=== PATIENT | female | born 1985 | race Caucasian/White ===

== ENCOUNTER 2016-12-04 09:21 | Day surgery (SDC) | payer BC ==
[~2016-12-04] VITALS: Ht 162.6 cm; Wt 96.6 kg
--- NOTE | ~2016-12-04 | OR ---
PATIENT'S NAME: EDA PAL [facility] AGE: 31 [address] ROOM: [address] [id number] LOCATION: [facility] ADMIT DATE: 12/04/2016 OR/Procedure Report DISCHARGE DATE: 12/05/2016 FAMILY PHYSICIAN: PHYSICIAN, NO ATTENDING PHYSICIAN: Noreen Ziegler SURGEON: Noreen Ziegler MD ACQUISITION COST ESTIMATOR: DATE OF PROCEDURE: 12/04/2016 PREOPERATIVE DIAGNOSIS: Left C6-C7 disk herniation. POSTOPERATIVE DIAGNOSIS: Left C6-C7 disk herniation. OPERATIONS PROPOSED AND PERFORMED: 1. Anterior cervical microdiskectomy at C6-C7. 2. Anterior cervical fusion at C6-C7. 3. Plating using the inion absorbable plate. 4. Allograft using the [employer] [place] cervical allograft. 5. Microscope. 6. Fluoroscopy with interpretation. DESCRIPTION OF PROCEDURE: Under general anesthesia, the patient was positioned supine. The neck was extended. The neck and the upper chest were prepped and draped in the usual fashion. A curvilinear incision was then carried out, extending from the anterior border of the sternomastoid muscle to the midline. The platysma was incised along this length, and we continued our dissection in the plane between the sternomastoid muscle and the strap muscles, working medial to the sternomastoid muscle and medial to the carotid artery. This got us to the prevertebral fascia. In order to get there, we had to retract the strap muscles as well as the esophagus and trachea away from the midline. Next, the prevertebral fascia was cauterized and incised. Two spinal needles were placed in adjacent disk spaces, and the lateral C-spine x-ray obtained showed where the C6-C7 and C7-T1 took our the needle from both levels, and made an incision into the C6-C7 disk space to rosie it. Next, the longus colli muscles were from their attachment to the vertebral bodies, and the [employer] self-retaining retractors were then used for retraction, making sure that the transverse blades were under the longus colli muscles. Next, the incision into the C6-C7 disk space was extended to cut as much disk as we could grossly. We then went ahead and screwed the distractor rods into the C6 and C7 vertebral bodies, and distracted the disk space. Next, the microscope was brought in. With the aid of the microscope, we completely removed the disk. We also removed the posterior longitudinal ligament. We got into some epidural vessel bleeding, especially on the left side. We were, however, able to control this PATIENT'S NAME: EDA PAL [facility] AGE: 31 Y [address] ROOM: [place] [id number] LOCATION: [facility] ADMIT DATE: 12/04/2016 OR/Procedure Report DISCHARGE DATE: 12/05/2016 FAMILY PHYSICIAN: PHYSICIAN, NO ATTENDING PHYSICIAN: Noreen Ziegler using powdered Gelfoam as well as regular Gelfoam soaked in thrombin. We explored the neural foramina on the left side, and we were able to retrieve a small disk extrusion. Further exploration of the neural foramen on that side did not yield any more disk material. We did the same thing on the right side, and there was no disk herniation at this level or disk extrusion at this site. Next, the wound was thoroughly irrigated with bacitracin irrigation. We were able to stop the bleeding from the epidural vessels on the left side using the Gelfoam. The powdered Gelfoam was washed out. Next, we used the Globus spacer to get the appropriate size graft. We used the 12 x 14 x 8 mm graft, and the distraction was then released. Next, the anterior-inferior and anterior- superior portions of the C6 and C7 vertebral bodies respectively were prepped, removing the soft tissue over them and also the anterior osteophytes. Having done that, we then got the template for the inion plates, and we were able to get the appropriate length inion plate. It was a 27-mm length for the plating. The plate was then put in sterile water. We were able to create a little lordosis, which was all that we needed on the plate. The plate was then placed anterior to the vertebral bodies, straddling the C6-C7 disk space. The plate- holding pins were then put in place, and using the double-barrel guide, we drilled and tapped and put the screws into the vertebral bodies. This procedure was carried out at the four holes. In the holes where we had the plate-holding pins, we removed these plate-holding pins, and used a double- barrel guide to do the drilling, tapping, and putting the screws in. The wound was thoroughly irrigated with bacitracin irrigation. We then got a lateral and an AP x-ray of the cervical spine fluoroscopically, and that showed that the graft and screws and plate were in good positions. The wound was again thoroughly irrigated with bacitracin irrigation. The C-arm was removed, the wound was closed in layers after we had inspected it, and so no bleeding at first the platysma and then the skin. The patient tolerated the procedure well, and was taken to the Recovery Room. MD SANDY HODGSON/dimitris /[id number] d: [birth year]/166 t: 12/15/16 1205, OPERATIVE SUMMARY
[~2016-12-04 09:21] MED LIST: ADVIL200 MG PO; BACTRIM DS1 TAB PO; NEXPLANON68 MG; TYLENOL EXTRA500 MG PO
[2016-12-05] MEDS ORDERED: PERCOCET 5-3251 EACH PO (09:52)
== END 2016-12-05 10:00 | disposition disaster alternative care site (69) ==
LOC: G3N 09:21 → GSDC 09:21 → G3N 16:00 → GSDC 12-05 10:00
PROC: 0RB30ZZ Excision of Cervical Vertebral Disc, Open Approach (ICD-10-PCS; principal; 2016-12-04)
PROC: 0RG10K0 Fusion of Cervical Vertebral Joint with Nonautologous Tissue Substitute, Anterior Approach, Anterior Column, Open Approach (ICD-10-PCS; 2016-12-04)
DX: M50.123 Cervical disc disorder at C6-C7 level with radiculopathy (principal); J45.909 Unspecified asthma, uncomplicated; Z88.5 Allergy status to narcotic agent; K21.9 Gastro-esophageal reflux disease without esophagitis; Z90.49 Acquired absence of other specified parts of digestive tract
CPT/HCPCS: C1713; J0131; J0690; J1100; J2001; J2250; J2405; J2550; J3010; J3360; J7120